=== PATIENT | male | born 1955 | race Caucasian/White ===

== ENCOUNTER 2024-12-14 14:50 | Emergency (ER) | payer MEDICARE, BC ==
[2024-12-14] MEDS: Nitroglycerin 0.4 MG Tab.SL SL PRN (15:38)
[2024-12-14] MEDS ORDERED: Sodium Chloride 0.9% 10 ML Syringe FLUSH PRN (15:45)
[2024-12-14 15:58] LABS: BASOPHILS ABSOLUTE AUTO 0.03 K/uL (0.02-0.10); BASOPHILS PERCENT AUTO 0.5 % (0.0-0.5); EOSINOPHILS ABSOLUTE AUTO 0.06 K/uL (0.04-0.40); EOSINOPHILS PERCENT AUTO 0.9 % (1.0-5.0); LYMPHOCYTES ABSOLUTE AUTO 0.92 K/uL (1.50-4.00); LYMPHOCYTES PERCENT AUTO 14.1 % (20.0-40.0); MEAN PLATELET VOLUME 11.2 fL (6.0-10.0); MONOCYTES ABSOLUTE AUTO 0.66 K/uL (0.20-0.80); MONOCYTES PERCENT AUTO 10.1 % (3.0-10.0); NEUTROPHILS ABSOLUTE AUTO 4.86 K/uL (2.00-7.50); NEUTROPHILS PERCENT AUTO 74.4 % (45.0-70.0); PLATELET COUNT,PLT 233 K/uL (150-400); RED BLOOD CELL COUNT 4.73 M/uL (4.50-6.50); RED CELL DISTRIBUTION WIDTH 13.5 % (11.0-16.0); WHITE BLOOD CELL COUNT,WBC 6.5 K/uL (4.0-11.0)
[2024-12-14 16:21] LABS: A/G RATIO 1.0 (0.8-2.0); ALANINE AMINOTRANSFERASE,ALT 31.0 U/L (12-78); ASPARTATE AMNIOTRANSFERASE,AST 21.0 U/L (15-37); BILIRUBIN TOTAL 0.7 mg/dL (0.0-1.0); BLOOD UREA NITROGEN,BUN 11.0 mg/dL (8-26); CARBON DIOXIDE,CO2 25.9 mmol/L (21.0-32.0); CHLORIDE,CL 100.0 mmol/L (98-107); CREATININE 0.76 mg/dL (0.70-1.30); EST CRCL DRUG DOSING (CG) 92.05 mL/min; ESTIMATED GFR 96.0 mL/min (>60); GLUCOSE RANDOM 115.0 mg/dL (74-100); POTASSIUM,K 4.1 mmol/L (3.5-5.1); PROTEIN TOTAL,TP 7.4 g/dL (6.4-8.2); SODIUM,NA 136.0 mmol/L (136-145); TROPONIN I HIGH SENSITIVITY 18.8 pg/ml (<=60.4)
[2024-12-14] MEDS ORDERED: Nitroglycerin 0.4 MG Tab.SL ONE (17:00)
== END 2024-12-14 17:45 | disposition home or self-care (01) ==
LOC: LB.ED 14:50
DX: I20.89 Other forms of angina pectoris (principal); Z79.899 Other long term (current) drug therapy; Z87.891 Personal history of nicotine dependence
CPT/HCPCS: 36415; 71045; 80053; 84484; 85025; 93005; 99285; A9270; 93010; 99283